=== PATIENT | male | born 1985 | race Caucasian/White ===

== ENCOUNTER 2017-05-04 11:23 | Emergency (ER) | payer OTHER ==
[~2017-05-04 11:23] MED LIST: ALBUTEROL17 GM INH; AMOXICILLIN500 M1 PO; ATIVAN PO; DENTAL BALLS; LORATADINE PO; NO MEDICATIONS; PREDNISONE PO; SINGULAIR PO
== END 2017-05-04 12:17 | disposition home or self-care (01) ==
LOC: SED 11:23
DX: L20.84 Intrinsic (allergic) eczema (principal); I10 Essential (primary) hypertension; F17.210 Nicotine dependence, cigarettes, uncomplicated; J45.909 Unspecified asthma, uncomplicated
CPT/HCPCS: 99282